=== PATIENT | female | born 1985 ===

== ENCOUNTER → 2018-02-14 | Outpatient (CLI) | payer OTHER ==
[~2018-02-14] MED LIST: FLU60VIA41 IM; FOLI0.8C; PREN-127 PO
--- NOTE | 2018-02-14 21:31 | RADIOLOGY IMAGING REPORT ---
FACILITY: [facility] PATIENT NAME: Sonali Mi : 1985 MR: [id number] V: [id number] EXAM DATE: [id number] ORDERING PHYSICIAN: FRANSISCO PIERRE TECHNOLOGIST: Location: [facility] Patient: Sonali Mi : 1985 Visit/Account:[id number] Date of Sevice: 02/14/2018 Examination: Obstetric ultrasound COMPARISON: None available HISTORY: Anatomic survey. Given gestational age is 20 weeks 2 days for an estimated delivery date o f 07/02/2018. FINDINGS: Standard transabdominal obstetric ultrasound. Uterus, cervix, and adnexa: Single living intrauterine gestation in breech presentation. Visualized p ortions of the maternal adnexa are unremarkable although the ovaries are not identified. Placenta: Posterior placenta. With the inferior margin of the placenta abutting the internal cervical os. anatomic survey: 2 arms and 2 legs. Four-chamber heart. Cardiac outflow tracts are unremarkable . Visualized intracranial contents are within normal limits; lateral ventricle atria measures 6 mm. M idline face is unremarkable. Three-vessel umbilical cord with midline abdominal cord insertion. Cardi ac apex and stomach are ipsilateral. Fluid-filled stomach and urinary bladder. On longitudinal imagin g there is prominence of both renal pelvis measuring up to 4 mm; this is not appreciated on transvers e imaging. Spine is unremarkable in the transverse and longitudinal planes. Parameters: Biparietal diameter: 4.58 cm, 19 weeks 6 days Head circumference: 17.70 cm, 20 weeks 2 days Abdominal circumference: 2.08 cm, 21 weeks 1 day Femur length: 3.31 cm, 20 weeks 3 days Composite gestational age based on Hadlock criteria is 20 weeks 3 days for an estimated delivery divya e of 07/01/2018. Estimated weight is 356 g which is at the 56 percentile based on LMP. heart rate: 142 bpm. Amniotic fluid index (ANDREW): 14.0 cm. Largest pocket: 4.3 cm. IMPRESSION: 1. Single living intrauterine gestation in breech presentation. 2. Gestational age based on sonographic criteria is concordant with the given gestational age. 3. Posterior placenta with marginal placenta previa. Sonographic follow-up is recommended. 4. Mild renal pelviectasis which is at the upper limits of normal for the gestational age. Although o f doubtful significance, sonographic follow-up is recommended. 5. Anatomic survey is otherwise unremarkable. Report Dictated By: Nehemias Gavin MD at 02/14/2018 9:17 PM Report E-Signed By: Nehemias Gavin MD at 02/14/2018 9:27 PM WSN:[id number]
== END ==
LOC: RAD 11:05
PROVIDERS: ATTEND Obstetrics & Gynecology
DX: O09.92 Supervision of high risk pregnancy, unspecified, second trimester (principal); O44.02 Complete placenta previa NOS or without hemorrhage, second trimester

== ENCOUNTER → 2018-04-09 | Outpatient (CLI) | payer OTHER ==
[~2018-04-09] MED LIST changes: +DIPH0.5D12 IM; +RHO(150015 IM
[2018-04-09 13:29] LABS: PLATELET COUNT, AUTOMATED 208 K/uL (150-450)
== END ==
LOC: LAB 13:18
PROVIDERS: ATTEND Obstetrics & Gynecology
DX: Z34.82 Encounter for supervision of other normal pregnancy, second trimester (principal)
CPT/HCPCS: 36415; 82950; 85025

== ENCOUNTER → 2018-05-27 | Outpatient (CLI) | payer OTHER ==
--- NOTE | 2018-05-27 14:49 | RADIOLOGY IMAGING REPORT ---
[place] [facility] [place]IENT NAME: Sonali Mi : 1985 MR: [id number] V: [id number] EXAM DATE: [id number] ORDERING PHYSICIAN: EMILE LOPES TECHNOLOGIST: Location: [facility] [place] Patient: Sonali Mi : 1985 Visit/Account:[id number] Date of Sevice: 05/27/2018 Exam type: US [facility] OB LIIMITED History: Check placental placement Comparison: February 14, 2018. Findings: There is a single fetus in cephalic presentation. heart rate 135 bpm The placenta is posterior with the distal edge 2.34 cm from the cervical os The cervical length is 4.24 cm. The internal cervical os is closed Estimated gestational age by last menstrual period is 34 weeks and six days IMPRESSION: 1. Single viable fetus in cephalic presentation. Estimated gestational age by LMP is 34 weeks and s ix days The placenta is posterior with the distal tip now measuring 2.34 cm from the internal cervical os Report Dictated By: Latonia Romero MD at 05/27/2018 2:42 PM Report E-Signed By: Latonia Romero MD at 05/27/2018 2:45 PM WSN:[email or web address]
== END ==
LOC: RAD 11:36
PROVIDERS: ATTEND Advanced Practice Midwife
DX: Z02.9 Encounter for administrative examinations, unspecified (principal)

== ENCOUNTER → 2018-06-06 | Outpatient (CLI) | payer OTHER ==
[~2018-06-06] MED LIST changes: +ONDA4VIA3 IVP
== END ==
LOC: LAB 15:13
PROVIDERS: ATTEND Advanced Practice Midwife
DX: Z36.85 Encounter for antenatal screening for Streptococcus B (principal)
CPT/HCPCS: 87081

== ENCOUNTER → 2018-06-24 | Outpatient (CLI) | payer OTHER ==
--- NOTE | 2018-06-24 09:04 | RADIOLOGY IMAGING REPORT ---
FACILITY: [facility] PATIENT NAME: Sonali Mi : 1985 MR: [id number] V: [id number] EXAM DATE: ORDERING PHYSICIAN: EMILE LOPES TECHNOLOGIST: Location: [facility] Patient: Sonali Mi : 1985 Visit/Account:[id number] Date of Sevice: 06/24/2018 Limited OB ultrasound Indication: Size less than dates. Comparison: May 27, 2018 FINDINGS: Intrauterine gestations: one presentation: Cephalic. heart rate: 139 bpm Amniotic fluid index: 11.93 cm Largest amniotic fluid pocket 3.9 cm Placenta: Posterior without previa Gestational Parameters: BPD: 9.22 cm 37 weeks 4 days (43 percentile) HC: 33.72 cm 38 weeks 5 days (32 percentile) AC: 33.94 cm 37 weeks 6 days (43 percentile) FL: 7.64 cm 39 weeks one day (62 percentile) Average ultrasound age (AUA): 38 weeks 3 days TOBIAS: July 05, 2018 Estimated weight (EFW): 3418 g EFW for LMP: 51 percentile IMPRESSION: 1. Single live intrauterine gestation; estimated ultrasound age 38 weeks 3 days which gives a due divya e of 07/05/2018. This is concordant with a anatomic scan which estimated a due date of 07/01/2018. This is also concordant with due date based upon LMP. Report Dictated By: Bala Clark at 06/24/2018 8:52 AM Report E-Signed By: Bala Clark at 06/24/2018 8:59 AM [id number]:[email or web address]
== END ==
LOC: RAD 08:06
PROVIDERS: ATTEND Advanced Practice Midwife
DX: Z02.9 Encounter for administrative examinations, unspecified (principal)

== ENCOUNTER 2018-06-30 06:21 | Inpatient (IN) | payer OTHER ==
[~2018-06-30] VITALS: Ht 172.7 cm; Wt 72.6 kg
[2018-06-30] MEDS ORDERED: DLR(*) 1000 ML BAG 1,000 ML IV PRN (06:24)
[2018-06-30] MEDS ORDERED: OXYTOCIN 30 UNIT/D5LR 500 ML 500 ML IV PRN (06:24)
[2018-06-30] MEDS ORDERED: FAMOTIDINE(*) 20MG/50ML PREMIX 50 ML IVPB PRN (06:24)
[2018-06-30] MEDS ORDERED: LR(*) 1000 ML BAG 1,000 ML IV PRN (06:24)
[2018-06-30] MEDS ORDERED: fentaNYL CITR 100 MCG/2 ML AMP IVP PRN (06:25)
[2018-06-30] MEDS ORDERED: FLUSH 10 ML SYR IVP PRN (06:25)
[2018-06-30] MEDS ORDERED: cefOXitin/DEX(*) 2GM/50ML PREM 50 ML IVPB PRN (06:25)
[2018-06-30] MEDS ORDERED: LIDOCAINE 1% LOCAL 300 MG/30ML INJ PRN (06:25)
[2018-06-30] MEDS ORDERED: METOCLOPRAMIDE 10 MG/2 ML SDV IVP PRN (06:25)
[2018-06-30 07:00] VITALS: BP 106/54; Ht 172.7 cm; Wt 72.6 kg
[2018-06-30] MEDS ORDERED: FENTANYL/ROPIVACAINE 100 ML BAG EPI PRN (07:15)
[2018-06-30] MEDS ORDERED: LIDO/EPI 2% MPF 1:200,000 20ML EPI PRN (07:15)
[2018-06-30] MEDS ORDERED: fentaNYL CITR 100 MCG/2 ML AMP IT PRN (07:15)
[2018-06-30] MEDS ORDERED: BUPIVACAINE 0.25% MPF INJ EPI PRN (07:15)
[2018-06-30] MEDS ORDERED: LIDOCAINE/PF 2% 200MG/10ML AMP 200 MG/10 ML AMPUL EPI PRN (07:15)
[2018-06-30] MEDS ORDERED: BUPIVACAINE 0.5% INJ 30ML VIAL EPI PRN (07:15)
[2018-06-30 07:40] LABS: PLATELET COUNT, AUTOMATED 193 K/uL (150-450)
--- NOTE | 2018-06-30 08:56 | Anesthesia OB Pre-Anes Eval ---
History of Present Illness Anesthesia Start Date: Jun 30, 2018 Anesthesia Start Time: 07:55 OB Anesthesia Diagnosis: spontaneous labor, other (TOLAC) : 3 Para: 1 Result Diagram: 06/30/18 0729 Height (Inches): 68 Weight (Pounds): 160 Past Medical History Medical History: asthma (exercise induced) Surgical History: , other (wisdom teeth) Previous Anesthesia: epidural Attended Childbirth Classes?: No Hx Anesthesia Reactions: No Hx Family Anesthesia Reaction: No Past Complications: other (previous ) Home Meds Reported Medications Folic Acid (Folic Acid) 0.8 Mg Capsule 11/15/17 Vits W-Ca,Fe,Fa(<1MG) ( VITAMINS) 1 Each Tablet, 1 EACH PO DAILY, TAB 11/15/17 Allergies: Coded Allergies: No Known Drug Allergies (Unverified , 02/12/18) Anesthesia OB ROS Neurological: No migraines/headaches, No seizures, No neuropathy, No other ENT: Denies Tooth caps, Denies Loose teeth, Denies Chipped teeth, Denies Dentures, Denies Bridges, Denies Retainers, Denies Veneers, Denies Implants, Denies Tongue ring, Denies Other Pulmonary: asthma; No smoker (pks/day/yrs), No other Airway Class: ll Cardiovascular ROS: No edema, No arrhythmia, No other GI ROS: clear liquids Last Solids Date: Jun 29, 2018 Last Solids Time: 20:00 ROS: No Herpes, No STD(s), No Liver Disease, No Renal Disease, No Other Endocrine ROS: No diabetes, No gestational diabetes, No thyroid disorder, No other Musculoskeletal ROS: No low back pain, No low back injury, No scoliosis, No other ASA Classification: 2 Assessment and Plan Anesthesia Plan: LEB Anesthesia Stop Day: Jun 30, 2018 Anesthesia Stop Time: 10:00 GUILLERMINA DIAZ CRNA Jun 30, 2018 08:56
--- NOTE | 2018-06-30 09:00 | Procedure Note ---
Anesthetic Placement Note Anesthesia Plan: LEB Permit for Anesthesia Signed: Yes Anesthesia Technique: Patient Sitting Anesthesia Prep: Chlorhexidine Interspace: L 3-4 Local Anesthetic: 1% Lidocaine, 25 Gauge Needle Amount Local - cc's: 2 Anesthesia Needle: 17g Touhy/Schliff Anesthesia Attempts: 1 Loss of Resistance: Normal Saline Depth of JIGNESH (cm): 3.5 Cerebral Spinal Fluid: No Catheter Insertion (cm): 10 Catheter Type: Roldan - Spring Wound Epidural Dressing: Tegaderm, Tape Anesthesia Tray: Lot Number ([id number]), Expiration Date (11/30/2019) Anesthesia Medications: Epidural Test Dose: 1.5 Lido/Epi (1:200,000), Dose - mL (3), Time (0814), Negative Epidural Loading Dose: 0.2% Ropivicaine, With Fentanyl 2mcg/ml, Dose - ml (3), Time (0824) Epidural Infusion: 0.2% Ropivicaine, With Fentanyl 2mcg/ml, Start Time: (0824) Epidural Pump Setting: Bolus Dose - mL (4), Lockout - Minutes (20), Maintenance Rate - mL/hr (8), Maximum per Hour - mL (8) Complications: None GUILLERMINA DIAZ CRNA Jun 30, 2018 09:00
[2018-06-30] MEDS ORDERED: APAP/HYDROCODONE 325/7.5 TAB PO PRN (10:45)
[2018-06-30] MEDS ORDERED: HYDROCORTISONE 2.5% CR 30GM TB PR PRN (10:45)
[2018-06-30] MEDS ORDERED: ACETAMINOPHEN 325 MG TAB PO PRN (10:45)
[2018-06-30] MEDS ORDERED: LANOLIN OINT 7 GM TUBE TP PRN (10:45)
[2018-06-30] MEDS ORDERED: MAGNESIUM HYDROXIDE* 30ML UDCP PO PRN (10:45)
--- NOTE | 2018-06-30 10:47 | History & Physical ---
History of Present Illness Age of Patient: 33 : 2 Para or TPAL: 1 EDC per LMP: Jul 02, 2018 Estimated Gestational Age: 39 Chief Complaint LABOR History of Present Illness Presents in active labor, 6 cm. TOLAC as first was delivered by c/s after pushing in OP position. Uncomplicated otherwise. Rh negative, GBS negative. History Patient's Blood Type: A Negative Rubella Status: Immune Obstetrical History: previous Allergies: Coded Allergies: No Known Drug Allergies (Unverified , 02/12/18) Family History: FH: hypertension FATHER Med Rec Home Meds Reported Medications Folic Acid (Folic Acid) 0.8 Mg Capsule 11/15/17 Vits W-Ca,Fe,Fa(<1MG) ( VITAMINS) 1 Each Tablet, 1 EACH PO DAILY, TAB 11/15/17 Review of Systems All Systems Reviewed/Normal: Yes, Except as Noted Exam General Exam Vital Signs Vital Signs Date Time Temp Pulse Resp B/P (MAP) Pulse Ox O2 Delivery O2 Flow Rate FiO2 06/30/18 07:00 98.4 88 16 106/54 (71) 93 Room Air General Apperance: Alert/Awake/No Acute Distress Neuro: No Gross deficits Eyes: Normal Extraocular Movement & Vison Cardiovascular: Regular Rate and Rhythm Respiratory: No Respiratory Distress Abdomen: Soft, Non-Tender, Non-Distended, Gravid - Non-Tender Cervical Dialation: 6 Cervical Effacement (%): 100 Fetus Heart Tone Variabilty: Moderate FHT Accelerations: 15X15 FHT Decelerations: Variable FHT Category: I Medical Decision Making Data Points Result Diagram: 06/30/18 0729 VTE Prophylasis: Adult Deep Vein Thrombosis/Pulmonary: No Pharmacological Contraindicati: Pt at Low Risk for VTE Mechanical Contraindications: Pt at Low Risk for VTE Assessment and Plan BULK MAIL TECHNICIAN Plan: Routine Labor/Induct Care Problems: (1) , delivered Assessment & Plan: Planning vaginal delivery. She wants epidural. (2) 39 weeks gestation of BELLA MG MD Jun 30, 2018 10:47
--- NOTE | 2018-06-30 10:55 | OB Delivery Note ---
Delivery Note Vaginal Delivery Type: Forceps (closed jayy), Low (bladder drained, CECILY position) Delivery Date: Jun 30, 2018 Delivery Time: 09:52 Estimated Gestational Age(wks): 39.5 Indication (if vag op): prolonged variable decelerations and late decelerations necessitating delivery to be expedited. Delivery Anesthesia: Epidural Sex: Female Infant Weight (gms): 3062 [place] Apgars: 1 Minute (8), 5 Minute (9) Repair Needed: Laceration, Vaginal (sulcus tear on right and left), 2nd Degree Estimated Blood Loss: 500 (due to time required to repair) Delivery Complications: Hemorrhage, Laceration Notes: Presented in labor 6 cm. She progressed rapidly to complete and ready to push. Severe variables noted at time with contraction but responded to position. Early decelerations noted and when set up for pushing in dorsal lithotomy position, FHTs dropped for a prolonged decel. Return to baseline with excellent variability and response to scalp stimulation. Decelerations progressively moved into a late pattern with some tachycardia and mom's progressed was judged to be slow although pushing well. Consent obtained for operative vaginal delivery in order to expedite delivery. Cb Galvez selected. She had already had a ford catheter that had recently been removed. Baby was in the CECILY position. Easy application and over the next contraction, assistance provided with excellent descent of the head. Attempted to stabilize the perineum but ultimately delivered over a second degree laceration. Further exam revealed after, vaginal sulcus tears bilaterally. Placenta delivered spontane ously and intact. Repair with 2-0 Chromic with good result. Assistant At Surgery in Attendence: No Copies to: BELLA MG MD ; BELLA MG MD Jun 30, 2018 10:55
[2018-06-30] MEDS: IBUPROFEN 800 MG TAB PO SCH ×2 (12:45→20:24)
[2018-06-30] MEDS: GLYCERIN/WITCH HAZEL LEAF 1 PK TOP PRN (12:45)
[2018-06-30] MEDS: BENZOCAINE 20% 60 ML BTL TP PRN (12:46)
[2018-06-30] MEDS ORDERED: OXYTOCIN 30 UNIT/D5LR 500 ML 500 ML ONE (13:16)
[2018-06-30] MEDS ORDERED: METHYLERGONOVINE MAL 0.2MG/ML IM ONE (13:25)
[2018-06-30] MEDS ORDERED: TRANEXAMIC AC 1000 MG/10ML SDV 1,000 MG in NS(*) 0.9% 50 ML BAG 50 ML IVPB ONE ×2 (13:25→14:10)
[2018-06-30] MEDS ORDERED: METHYLERGONOVINE MAL 0.2MG/ML ONE (13:27)
[2018-06-30] MEDS ORDERED: LR(*) 1000 ML BAG 1,000 ML ONE (15:03)
[2018-06-30 15:09] VITALS: BP 104/51
[2018-06-30 16:55] VITALS: BP 102/55
[2018-06-30 19:30] VITALS: BP 106/53
[2018-06-30] MEDS: DOCUSATE CALCIUM 240 MG CAP PO SCH (20:24)
[2018-06-30] MEDS ORDERED: LR(*) 1000 ML BAG 2,000 ML ONE (21:17)
[2018-06-30 23:05] VITALS: BP 109/54
[2018-07-01 04:10] VITALS: BP 104/48
[2018-07-01] MEDS: IBUPROFEN 800 MG TAB PO SCH ×3 (04:10→20:52)
[2018-07-01 06:30] VITALS: BP 96/58
[2018-07-01 07:30] VITALS: BP 115/56
--- NOTE | 2018-07-01 08:42 | OB/GYN Progress Note ---
OB Subjective Progress Notes Subjective Passed a few large clots yesterday and bladder was drained with 1000 ml of urine at the time. Responded well to Methergine and tranexamic acid. However, she is anemic now with hgb 8.0. This was a combination of difficulty in getting stitches placed, delay in suture and then the uterine atony event she suffered. Currently however, she is not dizzy, light headed, does not have headache or feel particularly bad. She ambulates well without syncope. GI: NEG Nausea : Voiding Well, Vaginal Bleeding, Scant Pain: Mild Neurological: No Headache OB Objective Physical Exam Vital Signs Date Time Temp Pulse Resp B/P (MAP) Pulse Ox O2 Delivery O2 Flow Rate FiO2 07/01/18 06:30 70 17 96/58 (71) Room Air 07/01/18 04:10 99.0 06/30/18 16:55 98 Intake and Output 07/01/18 07:00 Intake Total 1720 ml Output Total 2000 ml Balance -280 ml Intake Oral 750 ml IV Total 970 ml Output Urine Total 2000 ml # Voids 4 General Appearance: Alert/Awake/No Acute Distress Neurological: No Gross deficits Eyes: Normal Extraocular Movement & Vison Cardiovascular: Normal Rhythm & Peripheral Pulses, Regular Rate and Rhythm Respiratory: No Respiratory Distress, Clear to Auscultation Abdomen: Soft, Non-Tender, Non-Distended, Fundus Firm, Non-Tender Psychological: Alert & Oriented X3, Appropriate Mood & Affect Result Diagram: 07/01/18 0615 Assessment and Plan CLERK TYPIST Plan: Routine Post- Care Problems: (1) , delivered (2) 39 weeks gestation of (3) Hemorrhage, delayed Assessment & Plan: Discussed option of transfusion. Considering she is without symptoms I have offered it as an option. Explained the benefits in detail and risks associated including allergic reaction, infectious disease risk and risk of superior court judge allergy to blood specific antigens that may impact a future . They will consider and let me know their preference. Otherwise, home later today. F/U at 6 weeks with IMG. Call with concerns or questions. (4) Hemorrhage, immediate (5) Anemia due to acute blood loss BELLA MG MD Jul 01, 2018 08:42
[2018-07-01] MEDS ORDERED: Acetaminophen/Hydrocodone PO (08:45)
[2018-07-01] MEDS ORDERED: IBUP800T37 PO (08:45)
--- NOTE | 2018-07-01 08:47 | OB/GYN Discharge Summary ---
Discharge Summary Reason for Hosp/Final Diag: (1) , delivered (2) 39 weeks gestation of (3) Hemorrhage, delayed Hospital Course & Plan: Discussed option of transfusion. Considering she is without symptoms I have offered it as an option. Explained the benefits in detail and risks associated including allergic reaction, infectious disease risk and risk of computer terminal operator allergy to blood specific antigens that may impact a future . They will consider and let me know their preference. Otherwise, home later today. F/U at 6 weeks with IMG. Call with concerns or questions. (4) Hemorrhage, immediate (5) Anemia due to acute blood loss Lates Vital Signs Vital Signs Date Time Temp Pulse Resp B/P (MAP) Pulse Ox O2 Delivery O2 Flow Rate FiO2 07/01/18 06:30 70 17 96/58 (71) Room Air 07/01/18 04:10 99.0 06/30/18 16:55 98 Weight (Pounds): 160 Result Diagram: 07/01/18614 Condition: Improved Discharge: Home, Self Senior Care Meds Active Scripts [Apap/Hydrocodone 325/7.5 Tab] 7.5 MG/325 MG TAB No Conflict Check, 1-2 EACH PO Q6H PRN for PAIN, #14 TAB Prov:BELLA NIXON MD 07/01/18 Reported Medications Folic Acid (Folic Acid) 0.8 Mg Capsule 11/15/17 Vits W-Ca,Fe,Fa(<1MG) ( VITAMINS) 1 Each Tablet, 1 EACH PO DAILY, TAB 11/15/17 Follow up Referrals: [facility] - In 6 Weeks @ [facility] with FRANSISCO PIERRE MD Follow up with: Dr. Nixon [phone] Follow up in: 6 wks PP or PO Discharge Diet: As Tolerates Discharge Activity: As Tolerates, No Heavy Lifting x 6 wks, No Heavy Lifting > 10lb, Pelvic Rest Copies to: BELLA NIXON MD ; BELLA NIXON MD Jul 01, 2018 08:47
[2018-07-01] MEDS: DOCUSATE CALCIUM 240 MG CAP PO SCH ×2 (09:33→20:52)
[2018-07-01] MEDS ORDERED: ACETAMINOPHEN 500 MG TAB PO ONE (09:55)
[2018-07-01] MEDS ORDERED: diphenhydrAMINE 50 MG/ML VIAL IVP ONE (09:55)
[2018-07-01] MEDS ORDERED: NS(*) 0.9% 500 ML BAG 500 ML ONE (09:59)
--- NOTE | 2018-07-01 10:25 | NUR ---
After administration of Tylenol and Benedryl, pt asked if it was too late to decline transfusions. Transfusion not done.
[2018-07-01 11:30] VITALS: BP 106/59
--- NOTE | 2018-07-01 11:50 | OB/GYN Progress Note ---
OB Subjective Progress Notes Subjective AK is a 33 yo who had a FAVD yesterday with Dr. Garcia for repetitive heart decelerations during second stage. She had a PPH of 500cc. Today she denies dizziness and significant fatigue, but that rather stressed about whether to get a transfusion or not. She is visibly distressed about this. After talking about the risks benefits and alternatives she decided against the transfusion at this time but will stay one more day for rest and observation. She denies headache vision changes and right upper quadrant pain. She reports breast- feeding is going well and baby is eating like a champ. Her bottom is sore but she is tolerating the pain with Motrin dermoplast and ice. GI: NEG Nausea, NEG Vomiting : Voiding Well, Vaginal Bleeding, Moderate Pain: Moderate Neurological: No Headache Eyes: No Visual Disturbances OB Objective Physical Exam Vital Signs Date Time Temp Pulse Resp B/P (MAP) Pulse Ox O2 Delivery O2 Flow Rate FiO2 07/01/18 06:30 70 17 96/58 (71) Room Air 07/01/18 04:10 99.0 06/30/18 16:55 98 l Intake and Output 07/01/18 07:00 Intake Total 1720 ml Output Total 2000 ml Balance -280 ml Intake Oral 750 ml IV Total 970 ml Output Urine Total 2000 ml # Voids 4 General Appearance: Alert/Awake/No Acute Distress Neurological: No Gross deficits Eyes: Normal Extraocular Movement & Vison Cardiovascular: Normal Rhythm & Peripheral Pulses, Regular Rate and Rhythm Respiratory: No Respiratory Distress, Clear to Auscultation Abdomen: Soft, Non-Tender, Non-Distended, Fundus Firm, Non-Tender Psychological: Alert & Oriented X3, Appropriate Mood & Affect Result Diagram: 07/01/18 0615 Assessment and Plan Hospital Day: 1 GOLF SALES ASSOCIATE Assessment: Stable GOLF SALES ASSOCIATE Plan: Routine Post- Care, Discharge Home Tomorrow Problems: (1) Second degree laceration of perineum, delivered, current hospitalization Onset Date: ~ 06/30/2018 Status: Acute Assessment & Plan: Pt sustained a bilateral sulcus tear and 2nd degree perineal laceration during a forceps delivery 06/30/18. She is tolerating pain well with motrin. Encouraged use of dermaplast, brayden bottle and gentle wiping. Pt is aware that she can have narcotic is she needs it. (2) care and examination Onset Date: ~ 06/30/2018 Status: Acute Assessment & Plan: Pt is reluctant to have a blood transfusion s/p FAVD yesterday with PPH of 500cc. Her Hgb is 8, but she is asymptomatic. We reviewed the R/B/A and pt has decided to decline the transfusion at this time. She has agreed to stay one more day for observation and rest. She likes this plan and feels less overwhelmed with it. We discussed the importance of getting out of bed slowly and not walking around the room with the baby. We reviewed iron and vit C rich foods.Her and mother are at the bedside and are agreeable to plan and supportive. Plan for DC tomorrow. (3) hemorrhage, delivered Status: Resolved EMILE LOPES CNM Jul 01, 2018 11:50
--- NOTE | 2018-07-01 12:05 | Anesthesia Post Eval Note ---
Anesthesia Post Eval Note Vital Signs 06/30/18 07/01/18 07/01/18 16:55 04:10 06:30 Temp 99.0 Pulse 70 Resp 17 B/P (MAP) 96/58 (71) Pulse Ox 98 O2 Delivery Room Air Pt able to participate in Eval: Yes Cardiovascular Status: Satisfactory Respiratory Status: Satisfactory Pain Managment: Satisfactory PO Nausea/Vomiting: Satisfactory Temperature Management: Satisfactory Mental Status: Satisfactory, Alert, Oriented X3 Post-Op Hydration Status: Satisfactory, Voiding w/o Difficulty Anesthesia Type: EVERETT JARAMILLO CRNA Jul 01, 2018 12:05
[2018-07-01 15:30] VITALS: BP 112/52
[2018-07-01 20:30] VITALS: BP 113/57
[2018-07-01] MEDS: GLYCERIN/WITCH HAZEL LEAF 1 PK TOP PRN (20:55)
[2018-07-01] MEDS: BENZOCAINE 20% 60 ML BTL TP PRN (20:56)
[2018-07-02] MEDS: IBUPROFEN 800 MG TAB PO SCH ×2 (03:27→12:47)
[2018-07-02 03:30] VITALS: BP 105/55
[2018-07-02 08:30] VITALS: BP 105/52
--- NOTE | 2018-07-02 08:35 | OB/GYN Progress Note ---
OB Subjective Progress Notes Subjective Discharge delayed last night due to indecision about transfusion. Pt ultimately decided to stay another night and see how she feels. Labs checked again and no significant changes. GI: NEG Nausea : Voiding Well Pain: Mild OB Objective Physical Exam Vital Signs Date Time Temp Pulse Resp B/P (MAP) Pulse Ox O2 Delivery O2 Flow Rate FiO2 07/02/18 03:30 99.0 85 15 105/55 (72) Room Air 06/30/18 16:55 98 Intake and Output 07/02/18 07:00 Intake Total 2080 ml Balance 2080 ml Intake Oral 2080 ml # Voids 5 General Appearance: Alert/Awake/No Acute Distress Neurological: No Gross deficits Eyes: Normal Extraocular Movement & Vison Cardiovascular: Normal Rhythm & Peripheral Pulses, Regular Rate and Rhythm Respiratory: No Respiratory Distress, Clear to Auscultation Abdomen: Soft, Non-Tender, Non-Distended, Fundus Firm, Non-Tender Psychological: Alert & Oriented X3, Appropriate Mood & Affect Result Diagram: 07/02/18 2367 Assessment and Plan Problems: (1) , delivered (2) 39 weeks gestation of (3) Hemorrhage, delayed Assessment & Plan: Pt still wants to remain conservative. She seems to be asymptomatic. Recommend close observation over the next few days and if fatigue or other symptoms are significant enough for her, I have asked to her contact her provider for further consideration of a transfusion. Otherwise, f/u with them at 6 weeks. (4) Hemorrhage, immediate (5) Anemia due to acute blood loss BELLA MG MD Jul 02, 2018 08:35
[2018-07-02] MEDS: DOCUSATE CALCIUM 240 MG CAP PO SCH (08:45)
[2018-07-02] MEDS ORDERED: INFLUENZA VIRUS VAC 0.5ML SYR IM ONLY ONE (09:00)
[2018-07-02] MEDS ORDERED: DIPHTH/TETANUS/ACEL. PERTUSSIS IM ONLY ONE (09:00)
[2018-07-02] MEDS ORDERED: MEASLES,MUMP,RUBELLA VAC 0.5ML SUBQ ONE (09:00)
[2018-07-02 12:50] VITALS: BP 105/53
--- NOTE | 2018-07-02 13:55 | OB/GYN Progress Note ---
OB Subjective Progress Notes Subjective AK is a 33 yo who had a FAVD on 06/30/[address] Garcia for repetitive heart decelerations during second stage. She had a PPH of 500cc. Today she denies dizziness, but does have some fatigue, but still declines the transfusion. her HCT/HBG rohan stable today. She denies headache, vision changes, and right upper quadrant pain. She reports breast-feeding is going well and she has no concerns. Her bottom is feeling much better today but she is tolerating the pain with Motrin dermoplast and ice.She denies anxiety and depression, but did have some undiagnosed anxiety her last period. She will watch that closely. and parents are there as well GI: POS Flatus; NEG Nausea, NEG Vomiting : Voiding Well, Vaginal Bleeding, Moderate Pain: Mild Neurological: No Headache Eyes: No Visual Disturbances OB Objective Physical Exam Vital Signs Date Time Temp Pulse Resp B/P (MAP) Pulse Ox O2 Delivery O2 Flow Rate FiO2 07/02/18 12:50 98.5 88 18 105/53 (70) 07/02/18 03:30 Room Air 06/30/18 16:55 98 l Intake and Output 07/02/18 07:00 Intake Total 2080 ml Balance 2080 ml Intake Oral 2080 ml # Voids 5 General Appearance: Alert/Awake/No Acute Distress Neurological: No Gross deficits Eyes: Normal Extraocular Movement & Vison Cardiovascular: Normal Rhythm & Peripheral Pulses, Regular Rate and Rhythm Respiratory: No Respiratory Distress, Clear to Auscultation Abdomen: Soft, Non-Tender, Non-Distended, Fundus Firm, Non-Tender Incision: Other (laceration well approximated) Psychological: Alert & Oriented X3, Appropriate Mood & Affect Result Diagram: 07/02/18 0546 Assessment and Plan Problems: (1) Second degree laceration of perineum, delivered, current hospitalization Onset Date: ~ 06/30/2018 Status: Acute Assessment & Plan: Pt sustained a bilateral sulcus tear and 2nd degree perineal laceration during a forceps delivery 06/30/18. She is tolerating pain well with motrin. Encouraged use of dermaplast, brayden bottle and gentle wiping. Pt has not needed narcotic pain meds (2) care and examination Onset Date: ~ 06/30/2018 Status: Acute Assessment & Plan: Pt is PPday #2 from a FAVD by Dr. Garcia on 06/30/18 for repetitive variables and then late decelerations. Her Hgb is stable at 8 this am,and she continues to be asymptomatic We reviewed when she goes home to rest as much as she can and the importance of getting up slowly and not walking around with the baby until she feels less fatigued. We reviewed iron and vit C rich foods. I also recommended getting an iron supplement and stool softener to start when she gets home. Her and parents are at the bedside and are agreeable to plan and supportive. Plan DC today. Reviewed DC instructions; mastitis, endometritis, DVT and pre eclampsia percautions. We also discussed that it will take some time to get her H&G back up and if she feels poorly to call to be seen sooner than 2 weeks by me. (3) hemorrhage, delivered Status: Resolved EMILE LOPES CNM Jul 02, 2018 13:55
== END 2018-07-02 17:10 | disposition home or self-care (01) | DRG 806 ==
LOC: OB 06:21
PROVIDERS: ADMIT Obstetrics & Gynecology; ATTEND Obstetrics & Gynecology
PROC: 10D07Z3 Extraction of Products of Conception, Low Forceps, Via Natural or Artificial Opening (ICD-10-PCS; principal; 2018-06-30)
PROC: 0KQM0ZZ Repair Perineum Muscle, Open Approach (ICD-10-PCS; 2018-06-30)
PROC: 3E0334Z Introduction of Serum, Toxoid and Vaccine into Peripheral Vein, Percutaneous Approach (ICD-10-PCS; 2018-07-01)
DX: O34.211 Maternal care for low transverse scar from previous cesarean delivery (principal); D62 Acute posthemorrhagic anemia; Z37.0 Single live birth; O36.0130 Maternal care for anti-D [Rh] antibodies, third trimester, not applicable or unspecified; O70.1 Second degree perineal laceration during delivery; O76 Abnormality in fetal heart rate and rhythm complicating labor and delivery; O90.81 Anemia of the puerperium; O67.8 Other intrapartum hemorrhage; Z3A.39 39 weeks gestation of pregnancy
CPT/HCPCS: 36415; 85014; 85018; 85025; 85027; 85461; 86703; 86850; 86870; 86900; 86901; 86920; J1200; J2210; J2590; J2791; J7050; J7120